=== PATIENT | female | born 1980 | race Caucasian/White ===

== ENCOUNTER 2018-04-25 10:01 | Outpatient (CLI) | payer OTHER | END 2018-04-25 10:16 | disposition home or self-care (01) | LOC: LAB 10:01 | DX: I10 Essential (primary) hypertension (principal); N92.0 Excessive and frequent menstruation with regular cycle; N91.1 Secondary amenorrhea ==

== ENCOUNTER 2018-05-03 09:00 | Inpatient (IN) | payer OTHER ==
[~2018-05-03] VITALS: Ht 154.9 cm; Wt 66.2 kg
[2018-05-12] MEDS ORDERED: CODE1TAB37 PO (10:12)
[2018-05-12] MEDS ORDERED: NAPR500T14 PO (10:12)
== END 2018-05-12 13:06 | disposition home or self-care (01) | DRG 743 ==
LOC: EDUNIT# 09:00 → EDBD 09:00 → O/R 05-09 06:25 → SURG 05-09 06:25 → SURH 05-09 09:00 → SURG 05-09 11:34 → SURH 05-09 21:15 → SURG 05-12 13:06
PROVIDERS: Obstetrics & Gynecology
PROC: 0UB90ZZ Excision of Uterus, Open Approach (ICD-10-PCS; principal; 2018-05-09 21:15)
DX: D25.0 Submucous leiomyoma of uterus (principal)